=== PATIENT | female | born 1980 | race Two or more races ===

== ENCOUNTER 2016-07-16 22:12 | Emergency (ER) | payer MEDICAID, OTHER ==
--- NOTE | ~2016-07-16 | ER ---
PATIENT'S NAME: [facility] AGE[facility] 36 Y [address] ROOM: [place] [address] LOCATION: [facility] ADMIT DATE: 07/16/2016 ER/Outpatient Report DISCHARGE DATE: 07/17/2016 FAMILY PHYSICIAN: Kendell Novak MD ATTENDING PHYSICIAN: Deshawn Cotto Time of Arrival: 2216 hours. Time of Evaluation: 2220 hours. CHIEF COMPLAINT: Right upper quadrant abdominal pain. HISTORY OF PRESENT ILLNESS: The patient states that she has had right upper quadrant abdominal pain off and on for the last 3 weeks. States it has become more constant tonight. States she feels bloated. She has not had any nausea, no vomiting. She had a normal bowel movement today. She had been constipated prior to today. She did start her period today. She reports if she takes her metformin 1000 mg at one time, the pain gets worse, though she takes it at 500 mg in the morning, 500 at night. She does not have as much pain, but her blood sugars have been higher. She denies running a fever, has not felt short of breath. ALLERGIES: NO KNOWN ALLERGIES. CURRENT MEDICATIONS: On her chart and reviewed by me. PAST MEDICAL HISTORY: Noninsulin-dependent diabetes, elevated cholesterol. PAST SURGICAL HISTORY: Cholecystectomy, tonsillectomy and adenoidectomy. Last menstrual period started today. SOCIAL HISTORY: She denies the use of tobacco, drugs. Only drinks alcohol on a social basis. REVIEW OF SYSTEMS: All negative other than those mentioned in the HPI. PHYSICAL EXAMINATION: VITAL SIGNS: She states she is 5 feet 4 inches. She weighs 96 kg. Blood pressure is 113/69, pulse is 69, respirations 16, temperature of 97.8, O2 saturation is 97% on room air. PATIENT'S NAME: [facility] AGE: 36 Y [address] ROOM: [place] [address] LOCATION: [facility] ADMIT DATE: 07/16/2016 ER/Outpatient Report DISCHARGE DATE: 07/17/2016 FAMILY PHYSICIAN: Kendell Novak MD ATTENDING PHYSICIAN: Deshawn Cotto GENERAL: She is awake, alert, and oriented x4. SKIN: [place], warm, and dry. RESPIRATIONS: Even and nonlabored. Lung sounds are clear throughout. HEART: Regular rate and rhythm. ABDOMEN: Soft and nondistended. Bowel sounds are present. She is tender in the right upper quadrant and mid epigastric area. No organomegaly noted. LABORATORY DATA AND X-RAYS: CBC was done and it is within normal limits. Chem panel was completed, it is within normal limits. Amylase was 47 with a lipase of 115. UA was done. It is within normal limits. IMPRESSION: Abdominal pain, mid epigastric pain. PLAN: Home. Rest. Easy to digest diet. Fluids. Monitor her blood sugars. Prescription was written for omeprazole to start on a daily basis. If symptoms persist, she needs to follow up with her primary provider in 2-3 days. She verbalized understanding. ADELA CHEW APRN FOR MD ELE NATH/dipesh /[id number] d: 07/17/16 0109 t: 07/19/16 1252, OUTPATIENT REPORT
--- NOTE | ~2016-07-16 | ER ---
[facility] 36 Y [address] ROOM: [place] [address] LOCATION: [facility] ADMIT DATE: 07/16/2016 ER/Outpatient Report DISCHARGE DATE: 07/17/2016 FAMILY PHYSICIAN: Kendell Novak MD ATTENDING PHYSICIAN: Deshawn Cotto Time of Arrival: 2216 hours. Time of Evaluation: 2220 hours. CHIEF COMPLAINT: Right upper quadrant abdominal pain. HISTORY OF PRESENT ILLNESS: The patient states that she has had right upper quadrant abdominal pain off and on for the last 3 weeks. States it has become more constant tonight. States she feels bloated. She has not had any nausea, no vomiting. She had a normal bowel movement today. She had been constipated prior to today. She did start her period today. She reports if she takes her metformin 1000 mg at one time, the pain gets worse, though she takes it at 500 mg in the morning, 500 at night. She does not have as much pain, but her blood sugars have been higher. She denies running a fever, has not felt short of breath. ALLERGIES: NO KNOWN ALLERGIES. CURRENT MEDICATIONS: On her chart and reviewed by me. PAST MEDICAL HISTORY: Noninsulin-dependent diabetes, elevated cholesterol. PAST SURGICAL HISTORY: Cholecystectomy, tonsillectomy and adenoidectomy. Last menstrual period started today. SOCIAL HISTORY: She denies the use of tobacco, drugs. Only drinks alcohol on a social basis. REVIEW OF SYSTEMS: All negative other than those mentioned in the HPI. PHYSICAL EXAMINATION: VITAL SIGNS: She states she is 5 feet 4 inches. She weighs 96 kg. Blood pressure is 113/69, pulse is 69, respirations 16, temperature of 97.8, O2 saturation is 97% on room air. [facility] AGE: 36 Y [address] ROOM: [place] [address] LOCATION: [facility] ADMIT DATE: 07/16/2016 ER/Outpatient Report DISCHARGE DATE: 07/17/2016 FAMILY PHYSICIAN: Kendell Novak MD ATTENDING PHYSICIAN: Deshawn Cotto GENERAL: She is awake, alert, and oriented x4. SKIN: [place], warm, and dry. RESPIRATIONS: Even and nonlabored. Lung sounds are clear throughout. HEART: Regular rate and rhythm. ABDOMEN: Soft and nondistended. Bowel sounds are present. She is tender in the right upper quadrant and mid epigastric area. No organomegaly noted. LABORATORY DATA AND X-RAYS: CBC was done and it is within normal limits. Chem panel was completed, it is within normal limits. Amylase was 47 with a lipase of 115. UA was done. It is within normal limits. IMPRESSION: Abdominal pain, mid epigastric pain. PLAN: Home. Rest. Easy to digest diet. Fluids. Monitor her blood sugars. Prescription was written for omeprazole to start on a daily basis. If symptoms persist, she needs to follow up with her primary provider in 2-3 days. She verbalized understanding. ADELA CHEW APRN FOR MD ELE NATH/dipesh /[id number] d: 07/17/16 0109 t: 08/22/16 0454, OUTPATIENT REPORT
[2016-07-16 22:39] LABS: BILIRUBIN URINE NEGATIVE (NEGATIVE); BLOOD URINE 50 /UL (NEGATIVE); GLUCOSE URINE NEGATIVE (NEGATIVE); KETONE URINE NEGATIVE (NEGATIVE); LEUKOCYTES URINE NEGATIVE /UL (NEGATIVE); NITRITE URINE NEGATIVE (NEGATIVE); PROTEIN URINE NEGATIVE (NEGATIVE); UROBILINOGEN URINE NORMAL (NORMAL)
[2016-07-16 22:47] LABS: COLOR URINE YELLOW (YELLOW); TURBIDITY URINE CLEAR (CLEAR)
[2016-07-16 22:48] LABS: WBC URINE NEGATIVE #/HPF (NEGATIVE)
[2016-07-16 22:50] LABS: BACTERIA URINE RARE (NEGATIVE)
[2016-07-16 23:40] LABS: BASOPHIL % 0.4 %; EOSINOPHIL # 0.1 K/uL (0.0-0.5); EOSINOPHIL % 1.2 %; HEMATOCRIT 39.3 % (33.0-46.0); HEMOGLOBIN 13.4 g/dL (11.0-15.0); IMMATURE GRANULOCYTE % 0.4 %; LYMPHOCYTE # 3.8 K/uL (0.8-4.0); LYMPHOCYTE % 39.7 %; MCH 29.8 pg (27.0-34.0); MCHC 34.1 gm/dL (32.0-36.5); MCV 87.5 fl (83.0-98.0); MONOCYTE # 0.6 K/uL (0.0-1.0); MONOCYTE % 6.3 %; MPV 10.5 fl (9.4-12.4); NEUTROPHIL # (ANC) 4.9 K/uL (1.8-7.8); NRBC % 0 /100WBC (0-0.00); PLATELET COUNT 350 K/uL (150-450); RBC 4.49 M/uL (3.50-5.50); RDW-CV 14.2 % (11.9-14.6); WBC 9.5 K/uL (4.0-11.0)
[2016-07-16 23:56] LABS: ALBUMIN 3.5 gm/dL (3.5-5.0); ALK PHOS 86 IU/L (33-138); ALT 36 IU/L (12-78); ANION GAP 14.1 (10.0-19.0); AST 11 IU/L (10-40); BLOOD UREA NITROGEN 8 mg/dL (6-24); CALCIUM 8.5 mg/dL (8.5-10.5); CHLORIDE 105 mMol/L (96-110); CO2 26 mMol/L (22-32); CREATININE 0.7 mg/dL (0.5-1.1); ESTIMATED GFR (MDRD EQUATION) > 60; POTASSIUM 4.1 mMol/L (3.7-5.1); SODIUM 141 mMol/L (135-145); TOTAL BILIRUBIN 0.2 mg/dL (0.0-1.5); TOTAL PROTEIN 7.3 g/dL (6.0-8.4)
== END 2016-07-17 00:07 | disposition disaster alternative care site (69) ==
LOC: GMED 22:12
PROVIDERS: Emergency Medicine
DX: R10.13 Epigastric pain (principal); R10.11 Right upper quadrant pain; E11.9 Type 2 diabetes mellitus without complications; E78.00 Pure hypercholesterolemia, unspecified; Z79.84 Long term (current) use of oral hypoglycemic drugs; Z90.49 Acquired absence of other specified parts of digestive tract; Z98.890 Other specified postprocedural states; Z79.899 Other long term (current) drug therapy

== ENCOUNTER 2016-07-19 20:56 | Emergency (ER) | payer MEDICAID ==
--- NOTE | ~2016-07-19 | ER ---
[facility] 36 Y [address] ROOM: [place] [address] LOCATION: [facility] ADMIT DATE: 07/19/2016 ER/Outpatient Report DISCHARGE DATE: 07/19/2016 FAMILY PHYSICIAN: Kendell Novak MD ATTENDING PHYSICIAN: Jacek Diamond Time of Arrival: 2055 hours. Time of Evaluation: 2055 hours. CHIEF COMPLAINT: Tightness in chest. HISTORY OF PRESENT ILLNESS: The patient states just prior to arrival, she developed tightness across her upper chest, felt short of breath with it. She states she has had some fatigue lately, but does not describe it as weakness, did not get diaphoretic, has not been nauseated, has not vomited. She was seen here on 07/16/2016 for right upper quadrant abdominal pain. The exam checked out to be normal and she was sent home with a prescription for omeprazole. She states prior to start of pain tonight, she was upstairs with her daughter, who is in labor. She denies having any history of cardiac problems. States she was recently given an albuterol inhaler by the providers in [place] due to shortness of breath. ALLERGIES: NO KNOWN ALLERGIES. CURRENT MEDICATIONS: On her chart and reviewed by me. PAST MEDICAL HISTORY: [id number] diabetes and hyperlipidemia. PAST SURGERIES: Cholecystectomy, tonsils, and adenoids. SOCIAL HISTORY: Denies use of tobacco, drugs, or alcohol. REVIEW OF SYSTEMS: All negative other than those mentioned in the HPI. PHYSICAL EXAMINATION: VITAL SIGNS: She states she is 5 feet and 4 inches, she weighed 95.2 kg, blood pressure is 147/89, pulse is 76, respirations 20, temperature of 98.3, PATIENT'S NAME: [facility] 36 Y [address] ROOM: [place] [address] LOCATION: [facility] ADMIT DATE: 07/19/2016 ER/Outpatient Report DISCHARGE DATE: 07/19/2016 FAMILY PHYSICIAN: Kendell Novak MD ATTENDING PHYSICIAN: Jacek Diamond and O2 saturations are 100% on room air. GENERAL: She is awake, alert, and oriented x4. SKIN: [place], warm, and dry. RESPIRATIONS: Even and nonlabored. Lung sounds are clear throughout. HEART: Regular rate and rhythm. ABDOMEN: Soft and nondistended. Bowel sounds are present. No discomfort with palpating of the abdomen. LABORATORY DATA AND X-RAYS: EKG was completed, it shows sinus rhythm. CBC is within normal limits. Chem panel is normal. Amylase is 47 with lipase of 97. D-dimer is normal. Chest x-ray shows no acute abnormalities. IMPRESSION: Shortness of breath. PLAN: Discussed with the patient the need to use the albuterol inhaler to help open up her bronchials. If symptoms persist or worsen, she should be rechecked in the next 2 to 3 days. She is welcome to return to the ER as needed. She verbalized understanding. ADELA CHEW APRN FOR DO ELE LOYA/dipesh /[id number] d: 07/21/161911 t: 08/04/16 0845, OUTPATIENT REPORT
[2016-07-19 21:43] LABS: BASOPHIL % 0.4 %; EOSINOPHIL # 0.1 K/uL (0.0-0.5); IMMATURE GRANULOCYTE # 0.1 K/uL (0.0-0.3); IMMATURE GRANULOCYTE % 0.7 %; LYMPHOCYTE % 43.6 %; MCH 29.8 pg (27.0-34.0); MCHC 34.2 gm/dL (32.0-36.5); MCV 87.2 fl (83.0-98.0); MONOCYTE # 0.5 K/uL (0.0-1.0); MONOCYTE % 5.5 %; MPV 10.2 fl (9.4-12.4); NEUTROPHIL # (ANC) 4.5 K/uL (1.8-7.8); NEUTROPHIL % 48.8 %; NRBC % 0 /100WBC (0-0.00); PLATELET COUNT 347 K/uL (150-450); RBC 4.36 M/uL (3.50-5.50); WBC 9.2 K/uL (4.0-11.0)
[2016-07-19 21:55] LABS: ALBUMIN 3.5 gm/dL (3.5-5.0); ALK PHOS 85 IU/L (33-138); ALT 40 IU/L (12-78); ANION GAP 14.2 (10.0-19.0); AST 16 IU/L (10-40); BLOOD UREA NITROGEN 12 mg/dL (6-24); CALCIUM 8.9 mg/dL (8.5-10.5); CHLORIDE 105 mMol/L (96-110); CO2 26 mMol/L (22-32); CREATININE 0.6 mg/dL (0.5-1.1); ESTIMATED GFR (MDRD EQUATION) > 60; POTASSIUM 4.2 mMol/L (3.7-5.1); SODIUM 141 mMol/L (135-145); TOTAL BILIRUBIN 0.2 mg/dL (0.0-1.5); TOTAL PROTEIN 7.2 g/dL (6.0-8.4)
== END 2016-07-19 22:38 | disposition disaster alternative care site (69) ==
LOC: GMED 20:56
PROVIDERS: Nurse Practitioner Family
DX: R06.02 Shortness of breath (principal); E11.9 Type 2 diabetes mellitus without complications; E78.5 Hyperlipidemia, unspecified; Z90.49 Acquired absence of other specified parts of digestive tract; Z79.899 Other long term (current) drug therapy